=== PATIENT | female | born 1965 | race Caucasian/White ===

== ENCOUNTER 2016-12-04 08:57 | Emergency (ER) | payer MEDICAID ==
[~2016-12-04] VITALS: Ht 152.4 cm; Wt 69.5 kg
[~2016-12-04 08:57] MED LIST: ADVIL
[2016-12-04 09:00] VITALS: Ht 152.4 cm; Wt 69.5 kg
[2016-12-04] MEDS ORDERED: AMO500 PO (09:20)
[2016-12-04] MEDS ORDERED: IBUP-1542 PO (09:20)
[2016-12-04] MEDS ORDERED: HYDR-902 PO (09:20)
[2016-12-04] MEDS ORDERED: IBUPROFEN 800 MG TAB PO ONE (09:30)
[2016-12-04] MEDS ORDERED: DEXAMETHASONE 10 MG/ML 1 ML INJ IM ONE (09:30)
[2016-12-04] MEDS ORDERED: AMOXICILLIN 500 MG CAP PO ONE (09:30)
--- NOTE | 2016-12-04 13:28 | ERD ---
ER Documentation Chief Complaint Date/Time DATE: 12/04/16 TIME: 13:26 Chief Complaint sore throat x 5 days HPI Patient is a 51-year-old female with no medical problems who presents with a sore throat. The symptoms started on Thursday. The patient has no trouble breathing. There are no fevers. The patient tried NyQuil and Advil. There was no allergic reaction and the patient has no new soaps, lotions, or foods. There are no new medicines. Upon review of old medical records the patient one previous visit to the ER in 2011. The patient does not remember the name of the primary doctor. ROS All systems reviewed and are negative except as per history of present illness. Medications Home Meds Active Scripts Amoxicillin* (Amoxicillin*) 500 Mg Cap, 500 MG PO TID for 10 Days, CAP Prov:RAHUL WEBB MD 12/04/16 Hydrocodone/Acetaminophen ([place] 10-325 Tablet) 1 Each Tablet, 1 TAB PO Q6H Y for PAIN, #7 TAB Prov:RAHUL WEBB MD 12/04/16 Ibuprofen* (Motrin*) 600 Mg Tab, 600 MG PO Q6H Y for PAIN AND OR ELEVATED TEMP, #30 TAB Prov:RAHUL WEBB MD 12/04/16 Discontinued Reported Medications [Advil] No Conflict Check 01/06/12 Allergies Allergies: Coded Allergies: No Known Allergy (Unverified , 01/06/12) PMhx/Soc History of Surgery: Yes () Anesthesia Reaction: No Hx Neurological Disorder: No Hx Respiratory Disorders: No Hx Cardiac Disorders: No Hx Psychiatric Problems: No Hx Miscellaneous Medical Probl: No Hx Alcohol Use: No Hx Substance Use: No Hx Tobacco Use: No Smoking Status: Never smoker FmHx Family History: No diabetes Physical Exam Vitals Vital Signs Date Time Temp Pulse Resp B/P Pulse Ox O2 Delivery O2 Flow Rate FiO2 12/04/16 09:00 98.9 120 18 176/82 97 Physical Exam Const: No acute distress Head: Atraumatic Eyes: Normal Conjunctiva ENT: Erythema of the oropharynx, no obvious peritonsillar abscess, no stridor over the neck, no epiglottitis, no angioedema Neck: Full range of motion..~ No meningismus. Resp: Clear to auscultation bilaterally Cardio: Regular rate and rhythm, no murmurs Abd: Soft, non tender, non distended. Normal bowel sounds Skin: No petechiae or rashes Back: No midline or flank tenderness Ext: No cyanosis, or edema Neur: Awake and alert Psych: Normal Mood and Affect Results 24 hrs Current Medications Medications (Trade) Dose Ordered Sig/Hailee Route PRN Reason Start Time Stop Time Status Last Admin Dose Admin Dexamethasone (Decadron) 10 mg ONCE ONCE IM 12/04/16 09:30 12/04/16 09:31 DC 12/04/16 09:22 Amoxicillin (Amoxicillin) 500 mg ONCE ONCE PO 12/04/16 09:30 12/04/16 09:31 DC 12/04/16 09:26 Ibuprofen (Motrin) 800 mg ONCE ONCE PO 12/04/16 09:30 12/04/16 09:31 DC 12/04/16 09:22 Procedures/MDM Patient is a 51-year-old female presents with what appears to be an acute pharyngitis. At this point I doubt peritonsillar abscess, retropharyngeal abscess, or epiglottitis. I believe outpatient management is appropriate. However the patient will need close follow-up with her primary doctor within 24 hours for reevaluation. The patient was given Decadron in the emergency department as well as ibuprofen and will be given a prescription for ibuprofen and [place] and amoxicillin for 10 day course. Departure Diagnosis: Primary Impression: Pharyngitis Pharyngitis/tonsillitis etiology: unspecified etiology Qualified Code: J02.9 - Pharyngitis, unspecified etiology Additional Impression: Sore throat Condition: Fair Patient Instructions: Pharyngitis, Strep (Presumed) Referrals: Your doctor Additional Instructions: Llame al doctor MAANA y tim patricia ALLISON PARA DENTRO DE 1-2 NEELY.Dgale a la secretaria que nosotros le instruimos hacer esta allison.Avise o llame si zamora condicin se empeora antes de la allison. Regresa aqui si peor o no mejor. RAHUL WEBB MD Dec 04, 2016 13:28
== END 2016-12-04 10:02 | disposition home or self-care (01) ==
LOC: E/R 08:57
DX: J02.9 Acute pharyngitis, unspecified (principal); R40.2142 Coma scale, eyes open, spontaneous, at arrival to emergency department; R40.2362 Coma scale, best motor response, obeys commands, at arrival to emergency department; R40.2252 Coma scale, best verbal response, oriented, at arrival to emergency department
CPT/HCPCS: 96372; J1100; Z7502; Z7610

== ENCOUNTER 2017-04-19 13:54 | Emergency (ER) | payer MEDICAID ==
[~2017-04-19] VITALS: Ht 154.9 cm; Wt 71.0 kg
[~2017-04-19 13:54] MED LIST changes: -ADVIL; +AMO500 PO; +HYDR-902 PO; +IBUP-1542 PO
[2017-04-19 13:57] VITALS: Ht 154.9 cm; Wt 71.0 kg
[2017-04-19] MEDS ORDERED: morphine 4 MG/ML VIAL IV STA (15:46)
[2017-04-19] MEDS ORDERED: ONDANSETRON 4 MG INJ IV STA (15:46)
[2017-04-19] MEDS ORDERED: SOD CHLORIDE 0.9% 500 ML IV STA (15:46)
[2017-04-19 16:19] LABS: ADD SCAN DIFF NO
[2017-04-19 16:21] LABS: BASOPHILS % 0.2 % (0.0-2.0); EOSINOPHILS % 0.2 % (0.0-7.0); HEMATOCRIT 44.3 % (37.0-47.0); HEMOGLOBIN 15.3 g/dl (12.0-16.0); LYMPHOCYTES # 1.1 10^3/ul (0.8-2.9); LYMPHOCYTES % 12.7 % (15.0-51.0); MEAN CORPUSCULAR HEMOGLOBIN 30.4 pg (29.0-33.0); MEAN CORPUSCULAR HGB CONC 34.5 g/dl (32.0-37.0); MEAN CORPUSCULAR VOLUME 88.1 fl (82.0-101.0); MONOCYTE # 0.4 10^3/ul (0.3-0.9); MONOCYTES % 4.5 % (0.0-11.0); NEUTROPHIL # 7.4 10^3/ul (1.6-7.5); PLATELET COUNT 218 10^3/UL (140-415); RED BLOOD COUNT 5.03 10^6/ul (4.20-5.40); RED CELL DISTRIBUTION WIDTH 12.5 % (11.5-14.5)
--- NOTE | 2017-04-19 16:22 | RADRPT ---
PROCEDURE: Right upper quadrant abdominal ultrasound. CLINICAL INDICATION: Abdominal pain TECHNIQUE: Rowell scale and color doppler ultrasound images of the right upper quadrant. COMPARISON: None FINDINGS: Pancreas: Visualized portions appear of normal echogenicity, no focal lesions. Liver: Morphology: The right lobe of the liver is elongated measuring up to 17.1 cm which may reflect Cony del's lobe configuration. Echogenicity: Increased echogenicity of the liver parenchyma suggestive of hepatic steatosis. Focal lesions: None. Main portal vein: Patent with hepatopetal flow. Biliary System: Normal appearing gallbladder wall. No gallstones seen. No intrahepatic biliary dilatation. Common bile duct measures 2.4 mm in maximal dimension. Kidneys: Right 11.4 cm in length. Right renal cortical thickness is preserved. Normal echogenicity. No hydronephrosis. No renal calculi. No focal lesions. No free fluid identified. IMPRESSION: Normal gallbladder without gallstones. Increased echogenicity of the liver parenchyma suggestive of hepatic steatosis. RPTAT: AADD .Abelardo Godoy MD, MD Date Time Electronically viewed and signed by .Abelardo Godoy MD, on 04/19/2017 16:21 .B/
--- NOTE | 2017-04-19 16:23 | RADRPT ---
PROCEDURE: CT abdomen and pelvis without contrast. CLINICAL INDICATION: Abdominal Pain TECHNIQUE: CT scan of the abdomen and pelvis without contrast was performed and is reconstructed a t 2.5 mm contiguous axial intervals from the dome of the diaphragm to the inferior pubic rami.. The patient was scanned without intravenous contrast. Sagittal and coronal reformatted images were obt ained from the axial source images. The calculated radiation dose measures 745 mGy centimeters. The CTDI measures 13 mGy. COMPARISON: The FINDINGS: The lung bases are clear of any infiltrate or nodule. No effusion is seen. Liver is enlarged measuring 20 cm. There is fatty infiltration with focal sparing in the left lobe. No mass or ductal dilatation is present. No gallstones are visualized. No splenic, adrenal or pancreatic abnormalities present. Kidneys are of normal size and contour. No hydronephrosis or masses seen. There are multiple bila teral nonobstructing renal calculi including an 8 mm stone in the midpole of the left kidney and a 4 mm stone in the lower pole of the right kidney. Smaller stones are present in both kidneys.. Uret ers are of normal course and caliber with no stone. No bladder mass or stone is present. Uterus and ovaries appear normal. There is no aneurysm. No adenopathy is present. No bowel mass or obstruction is present. The appendix is normal. No phlegmon, ascites or pneumop eritoneum is visualized. There is L5-S1 degenerative disk disease. IMPRESSION: No evidence of obstructive uropathy, diverticulitis or appendicitis. Bilateral renal calculi. Enlarged fatty liver. L5-S1 degenerative disk disease. .Christos Mcnamara MD, MD Date Time Electronically viewed and signed by .Christos Mcnamara MD, MD on 04/19/2017 16:22 .A/
[2017-04-19 16:30] LABS: ADD UMIC YES; URINE BILIRUBIN (Dip) NEGATIVE (NEGATIVE); URINE BLOOD (Dip) 3+ (NEGATIVE); URINE COLOR LT. YELLOW (YELLOW); URINE GLUCOSE (Dip) >=1000 % (NEGATIVE); URINE KETONES (Dip) NEGATIVE (NEGATIVE); URINE LEUKOCYTE ESTERASE (Dip) NEGATIVE (NEGATIVE); URINE NITRITE (Dip) POSITIVE (NEGATIVE); URINE TOTAL PROTEIN (Dip) NEGATIVE (NEGATIVE); URINE UROBILINOGEN (Dip) 0.2 E.U./dL (0.1-1.0)
[2017-04-19 16:33] LABS: ALBUMIN 4.3 g/dl (3.3-4.9); BILIRUBIN,INDIRECT 0.6 mg/dl (0-1.1); BILIRUBIN,TOTAL 0.6 mg/dl (0.2-1.3); CALCIUM 9.7 mg/dl (8.4-10.2); CREATININE 0.7 mg/dl (0.44-1.00); POTASSIUM 3.9 mmol/L (3.5-5.1); TOTAL PROTEIN 8.6 g/dl (6.1-8.1)
[2017-04-19 16:45] LABS: BACTERIA,URINE MODERATE; URINE RBCS >200 /HPF (0)
[2017-04-19] MEDS ORDERED: ASPI81TA3 PO (17:00)
[2017-04-19] MEDS ORDERED: HYDR-902 PO (17:13)
[2017-04-19] MEDS ORDERED: CEPH-443 PO (17:13)
[2017-04-19] MEDS ORDERED: ONDA4TAB14 PO (17:13)
[2017-04-19] MEDS ORDERED: METF500T4 PO (17:13)
[2017-04-19] MEDS ORDERED: IBUP800T25 PO (17:13)
--- NOTE | 2017-04-19 17:20 | ERD ---
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 She states right flank pain radiating to the right abdomen for several days. She also states lumbar back pain radiating to the entirety of her right leg. No bowel or bladder incontinence. She does describe some mild dysuria slight urgency and frequency. She denies any fevers or chills. Prior history of kidney stones. No abdominal surgery history. ROS All systems reviewed and are negative except as per history of present illness. Medications Home Meds Active Scripts Cephalexin* (Keflex*) 500 Mg Capsule, 500 MG PO QID for 7 Days, CAP Prov:CLARISSA MATHEWS MD 04/19/17 Ondansetron (Ondansetron Odt) 4 Mg Tab.rapdis, 4 MG PO Q6H Y for NAUSEA AND/OR VOMITING, #10 TAB Prov:CLARISSA MATHEWS MD 04/19/17 Ibuprofen* (Motrin*) 800 Mg Tab, 800 MG PO Q6H Y for PAIN AND OR ELEVATED TEMP, #30 TAB Prov:CLARISSA MATHEWS MD 04/19/17 Hydrocodone/Acetaminophen ([place] 10-325 Tablet) 1 Each Tablet, 1 TAB PO Q6H Y for PAIN, #7 TAB Prov:CLARISSA MATHEWS MD 04/19/17 Metformin* (Glucophage*) 500 Mg Tab, 500 MG PO BID for 30 Days, TAB Prov:CLARISSA MATHEWS MD 04/19/17 Amoxicillin* (Amoxicillin*) 500 Mg Cap, 500 MG PO TID for 10 Days, CAP Prov:RAHUL WEBB MD 12/04/16 Hydrocodone/Acetaminophen ([place] 10-325 Tablet) 1 Each Tablet, 1 TAB PO Q6H Y for PAIN, #7 TAB Prov:RAHUL WEBB MD 12/04/16 Ibuprofen* (Motrin*) 600 Mg Tab, 600 MG PO Q6H Y for PAIN AND OR ELEVATED TEMP, #30 TAB Prov:RAHUL WEBB MD 12/04/16 Reported Medications Aspirin* (Aspirin* Chew) 81 Mg Tab.chew, 81 MG PO DAILY, TAB.CHEW 04/19/17 Allergies Allergies: Coded Allergies: No Known Allergy (Unverified , 01/06/12) PMhx/Soc History of Surgery: Yes () Anesthesia Reaction: No Hx Neurological Disorder: No Hx Respiratory Disorders: No Hx Cardiac Disorders: No Hx Psychiatric Problems: No Hx Miscellaneous Medical Probl: Yes (HTN, Kidney Stones.) Hx Alcohol Use: No Hx Substance Use: No Hx Tobacco Use: No Smoking Status: Never smoker FmHx Family History: No diabetes Physical Exam Vitals Vital Signs Date Time Temp Pulse Resp B/P Pulse Ox O2 Delivery O2 Flow Rate FiO2 04/19/17 16:36 97.9 106 18 160/91 94 Room Air 04/19/17 13:57 97.6 126 20 186/95 94 Physical Exam General: Well developed, well nourished, no acute distress Head: Normocephalic, atraumatic. Eyes: Pupils equally reactive, EOM intact ENT: Moist mucous membranes Neck: Supple, no lymphadenopathy Respiratory: Lungs clear bilaterally, no distress Cardiovascular: RRR, no murmurs, rubs, or gallops Abdominal: Soft, mild tenderness to the epigastrium and right upper quadrant, no CVA tenderness, no pulsatile mass : Deferred MSK: No edema, no unilateral swelling, 5/5 strength positive straight leg raise of the right lower extremity Neurologic: Alert and oriented, moving all extremities, normal speech, no focal weakness, no cerebellar signs Skin: No rash Psych: Normal mood Result Diagram: 04/19/17 1600 04/19/17 1600 Results 24 hrs Laboratory Tests Test 04/19/17 16:00 White Blood Count 9.010^3/ul Red Blood Count 5.0310^6/ul Hemoglobin 15.3g/dl Hematocrit 44.3% Mean Corpuscular Volume 88.1fl Mean Corpuscular Hemoglobin 30.4pg Mean Corpuscular Hemoglobin Concent 34.5g/dl Red Cell Distribution Width 12.5% Platelet Count 46589^3/UL Mean Platelet Volume 11.0fl Neutrophils % 82.0% Lymphocytes % 12.7% Monocytes % 4.5% Eosinophils % 0.2% Basophils % 0.2% Nucleated Red Blood Cells % 0.0/100WBC Neutrophils # 7.410^3/ul Lymphocytes # 1.110^3/ul Monocytes # 0.410^3/ul Eosinophils # 0.010^3/ul Basophils # 0.010^3/ul Nucleated Red Blood Cells # 0.010^3/ul Urine Color LT. YELLOW Urine Clarity CLEAR Urine pH 5.5 Urine Specific Lucas <=1.005 Urine Ketones NEGATIVE Urine Nitrite POSITIVE Urine Bilirubin NEGATIVE Urine Urobilinogen 0.2 E.U./dL Urine Leukocyte Esterase NEGATIVE Urine Microscopic RBC >200/HPF Urine Microscopic WBC 2-5/HPF Urine Epithelial Cells MODERATE Urine Bacteria MODERATE Urine Hemoglobin 3+ Urine Glucose >=1000% Urine Total Protein NEGATIVE Sodium Level 139mmol/L Potassium Level 3.9mmol/L Chloride Level 101mmol/L Carbon Dioxide Level 25mmol/L Anion Gap 17 Blood Urea Nitrogen 13mg/dl Creatinine 0.70mg/dl Glucose Level 490mg/dl Calcium Level 9.7mg/dl Total Bilirubin 0.6mg/dl Direct Bilirubin 0.00mg/dl Indirect Bilirubin 0.6mg/dl Aspartate Amino Transf (AST/SGOT) 19IU/L Alanine Aminotransferase (ALT/SGPT) 36IU/L Alkaline Phosphatase 162IU/L Total Protein 8.6g/dl Albumin 4.3g/dl Globulin 4.30g/dl Albumin/Globulin Ratio 1.00 Lipase 63U/L Current Medications Medications (Trade) Dose Ordered Sig/Hailee Route PRN Reason Start Time Stop Time Status Last Admin Dose Admin Sodium Chloride (NS) 500 ml @ 500 mls/hr Q1H STAT IV 04/19/17 15:46 04/19/17 16:45 DC 04/19/17 16:34 Morphine Sulfate (morphine) 4 mg ONCE STAT IV 04/19/17 15:46 04/19/17 15:47 DC 04/19/17 16:34 Ondansetron HCl (Zofran Inj) 4 mg ONCE STAT IV 04/19/17 15:46 04/19/17 15:47 DC 04/19/17 16:33 Procedures/MDM EKG, MONITORS, & DIAGNOSTIC IMAGING: Gallbladder ultrasound: IMPRESSION: Normal gallbladder without gallstones. Increased echogenicity of the liver parenchyma suggestive of hepatic steatosis. RPTAT: AADD Ct a/p: IMPRESSION: No evidence of obstructive uropathy, diverticulitis or appendicitis. Bilateral renal calculi. Enlarged fatty liver. L5-S1 degenerative disk disease. LAB INTERPRETATION: Hyperglycemia noted without evidence of diabetic ketoacidosis, urinalysis consistent with UTI, no ketonuria MEDICAL DECISION MAKING: The patient presents with multiple complaints including UTI type symptoms right flank pain, abdominal pain and right lower extremity pain. The patient's symptomatology seems to be most consistent with likely sciatica. Unclear significance of flank pain, consider nephrolithiasis versus cholelithiasis, low clinical concern for acute cholecystitis. The patient has no evidence of acute pyelonephritis. She may have an uncomplicated urinary tract infection. Given the multitude of her complaints laboratory testing, CT imaging and ultrasound have been ordered. ER COURSE: The patient's laboratory testing shows evidence of likely new diagnosis of type 2 diabetes. The patient has hyperglycemia without evidence of diabetic ketoacidosis. No indication for rapidly lowering this level. The patient has been given IV fluids. She will be started on metformin. Diabetes education given to the patient. Outpatient follow-up with primary care physician is strongly recommended. The patient CT abdomen pelvis is unrevealing. The patient's flank and back pain are most consistent with likely radiculopathy. Again no concern for bowel nephritis. The patient will be given Keflex for UTI. I kept the patient and/or family informed of laboratory and diagnostic imaging results throughout the emergency room course. DISPOSITION PLAN: We discussed follow up with the patient's primary care doctor within 24 to 48 hours as needed. We also discussed return to the emergency room for worsening symptoms or worsening condition. Outpatient referral: Primary care clinics strongly recommended Discharge Medications: [place], Zofran, Motrin, Keflex, metformin We discussed the use of narcotics including avoidance of operating heavy machinery and driving as well as its addictive properties. Departure Diagnosis: Primary Impression: Flank pain Additional Impressions: Sciatica Laterality: right Qualified Code: M54.31 - Sciatica of right side Diabetes mellitus Diabetes mellitus type: type 2 Diabetes mellitus complication status: without complication Diabetes mellitus long-term insulin use: unspecified long-term insulin use status Qualified Code: E11.9 - Type 2 diabetes mellitus without complication, unspecified terminal make up operator insulin use status Condition: Stable Patient Instructions: Understanding Urinary Tract Infections (UTIs), DIABETES, General Info, Flank Pain, Uncertain Cause, Back Pain W/ Sciatica, Hyperglycemia , New Onset (Diabetes Suspected) Referrals: [facility] Usted se bhagat hecho un examen mdico de control que le indica que no est en patricia condicin que requiera tratamiento urgente en el Departamento de Emergencia. Un estudio ms profundo y el tratamiento de zamora condicin pueden esperar sin ningn riesgo hasta que usted sea atendida/o en el consultorio de zamora mdico o patricia cl earlene. Es responsabilidad suya arreglar patricia allison para el seguimiento del clement. MANEJO DE CONDICIONES NO URGENTES EN EL FUTURO 1) Si usted tiene un mdico de atencin primaria: Usted debera llamar a zamora mdico de atencin primaria antes de venir al departamento de emergencia. Despus de las horas de consultorio, zamora doctor o zamora asociado/a est disponible por telfono. El mdico o enfermero de hussein en el servicio telefnico puede asesorarle por jerardo medio para atender el problema, o clement contrario se puede programar patricia allison. 2) Si usted no tiene un mdico de atencin primaria: Llame al mdico o clnica de referencia que aparece abajo demetrio las horas de consultorio para hacer patricia allison para que le vean. CLINICAS: [facility] [phone] [address] [facility] [phone] [address] [facility] [phone] [address] [facility]. [facility] [phone] [facility] [phone] [address] [facility]. [phone] [address] [facility] () Usted se bhagat hecho un examen mdico de control que le indica que no est en patricia condicin que requiera tratamiento urgente en el Departamento de Emergencia. Un estudio ms profundo y el tratamiento de zamora condicin pueden esperar sin ningn riesgo hasta que usted sea atendida/o en el consultorio de zamora mdico o patricia cl earlene. Es responsabilidad suya arreglar patricia allison para el seguimiento del clement. MANEJO DE CONDICIONES NO URGENTES EN EL FUTURO 1) Si usted tiene un mdico de atencin primaria: Usted debera llamar a zamora mdico de atencin primaria antes de venir al departamento de emergencia. Despus de las horas de consultorio, zamora doctor o zamora asociado/a est disponible por telfono. El mdico o enfermero de hussein en el servicio telefnico puede asesorarle por jerardo medio para atender el problema, o clement contrario se puede programar patricia allison. 2) Si usted no tiene un mdico de atencin primaria: Llame al mdico o condado institucions de referencia que aparece abajo demetrio las horas de consultorio para hacer patricia allison para que le vean. SI USTED NO PUEDE PAGAR PARA ABAD UN MEDICO puede ir a: [facility] [address] [place] [address] [facility] [address] [place] [address] [facility] [address] [place] [address] [facility] [address] [place], [place] [id number] Additional Instructions: Llame al doctor nombrado abajo (Referral Sources) MAANA y tim patricia ALLISON PARA DENTRO DE PATRICIA SEMANA. Dgale a la secretaria que nosotros le instruimos hacer esta allison.Avise o llame si zamora condicin se empeora antes de la allison. CLARISSA MATHEWS MD April 19, 2017 17:20
[2017-04-19 17:57] VITALS: BP 156/86; PULSE 87; RESP 16; TEMP 98
== END 2017-04-19 17:58 | disposition home or self-care (01) ==
LOC: E/R 13:54
DX: R10.11 Right upper quadrant pain (principal); M54.31 Sciatica, right side; E11.9 Type 2 diabetes mellitus without complications; I10 Essential (primary) hypertension; R11.2 Nausea with vomiting, unspecified; R10.13 Epigastric pain; Z79.82 Long term (current) use of aspirin; Z79.84 Long term (current) use of oral hypoglycemic drugs
CPT/HCPCS: 74176; 76705; 80053; 81001; 83690; 85025; J2270; J2405; J7040; 36415; 81003; 96361; 96374; 96375

== ENCOUNTER 2019-09-23 08:21 | Inpatient (IN) | payer MEDICAID ==
[~2019-09-23] VITALS: Ht 160 cm; Wt 80.0 kg
[2019-09-23] VITALS (20 sets, daily range): BP systolic 80–138; BP diastolic 45–65; PULSE 102–126; RESP 10–34; Ht 160 cm; Wt 80.0 kg
[~2019-09-23 08:21] MED LIST changes: -AMO500 PO; +AMOX500C2 PO; +ASPI-817 ORAL; +ASPI-903 PO; +CEPH-443 PO; +CIPR500T4 PO; +CYAN100085 PO; +GEMF600T8 ORAL; +GLIP5TAB13 ORAL; +HYDR-3980 PO; -HYDR-902 PO; +HYDR25TA6 PO; +IBUP800T48 PO; +METF-849 PO; +METF100010 ORAL; +OMEG1CAP88 ORAL; +ONDA4TAB14 PO
[2019-09-23] MEDS ORDERED: PIPER-TAZO 3.375 GM IV (PMX) 100 ML IVPB STA (08:35)
[2019-09-23] MEDS ORDERED: SODIUM CHLORIDE 0.9% 1L BAG IV* STA (08:35)
[2019-09-23] MEDS ORDERED: ACETAMINOPHEN 500 MG TAB PO STA (08:47)
[2019-09-23] MEDS ORDERED: ONDANSETRON 4 MG INJ IV PRN ×2 (09:30→12:30)
[2019-09-23] MEDS ORDERED: ACETAMINOPHEN 325 MG TAB PO PRN ×2 (09:30→12:30)
[2019-09-23] MEDS ORDERED: SOD CHLORIDE 0.9% 1,000 ML IV ONE (11:30)
[2019-09-23] MEDS ORDERED: NACL 0.9% 3 ML SYG IV SCH (12:30)
[2019-09-23] MEDS ORDERED: HYDROCODONE/APAP (5/325) TAB PO PRN (12:30)
[2019-09-23] MEDS ORDERED: morphine 2 MG INJ IV PRN (12:30)
[2019-09-23] MEDS ORDERED: DOCUSATE SODIUM 100 MG CAP PO PRN (12:30)
[2019-09-23] MEDS: SOD CHLORIDE 0.9% 1,000 ML IV SCH ×2 (13:09→22:30)
[2019-09-23] MEDS: CEFTRIAXONE 1 GM/50 ML (PMX) 50 ML IVPB SCH (13:09)
[2019-09-23] MEDS: INSULIN ASPART [NOVOLOG] 3 ML PEN SC SCH ×3 (14:22→22:39)
[2019-09-23] MEDS: INSULIN GLARGINE [LANTus] (100 UNITS/ML) SYG SC SCH (14:22)
[2019-09-23] MEDS ORDERED: PROPOFOL 20 ML ONE (18:42)
[2019-09-23] MEDS ORDERED: DEXAMETHASONE 4 MG/ML 5 ML INJ ONE (18:42)
[2019-09-23] MEDS ORDERED: ONDANSETRON 4 MG INJ ONE (18:42)
[2019-09-23] MEDS ORDERED: PHENYLephrine (100 MCG/ML) 5ML SYG ONE (18:42)
[2019-09-23] MEDS ORDERED: MIDAZOLAM 1 MG/ML 2 ML INJ ONE (18:42)
[2019-09-23] MEDS ORDERED: SUGAMMADEX SODIUM 200 MG/2 ML VIAL IV ONE (18:42)
[2019-09-23] MEDS ORDERED: ROCURONIUM 50 MG INJ ONE (18:42)
[2019-09-23] MEDS ORDERED: METOCLOPRAMIDE 10 MG INJ ONE (18:42)
[2019-09-23] MEDS ORDERED: KETOROLAC 30 MG INJ ONE (18:42)
[2019-09-23] MEDS ORDERED: CEFAZOLIN 1 GM INJ ONE (18:42)
[2019-09-23] MEDS ORDERED: EPHEDrine 25 MG/5 ML SYG ONE (18:42)
[2019-09-23] MEDS ORDERED: FENTAnyl 50 MCG/ML VIAL ONE (18:43)
[2019-09-23] MEDS ORDERED: LIDOCAINE 2% 20 ML UROJET SYRINGE ONE (19:17)
[2019-09-23] MEDS ORDERED: IOHEXOL 300MG/ML 30 ML BTL ONE (19:17)
[2019-09-23] MEDS ORDERED: HETASTARCH 6% NACL 500 ML BAG ONE (19:50)
[2019-09-23] MEDS ORDERED: ZOLPIDEM 5 MG TAB PO PRN (21:00)
[2019-09-24] MEDS: ACCU-CHEK XX SCH (02:00)
[2019-09-24] MEDS: SOD CHLORIDE 0.9% 1,000 ML IV SCH ×2 (02:42→14:21)
[2019-09-24 04:00] VITALS: BP 94/52; PULSE 92; RESP 20
[2019-09-24 07:33] VITALS: BP 113/70; PULSE 90; RESP 16
[2019-09-24] MEDS: INSULIN ASPART [NOVOLOG] 3 ML PEN SC SCH ×4 (07:53→21:10)
[2019-09-24] MEDS: INSULIN GLARGINE [LANTus] (100 UNITS/ML) SYG SC SCH (08:18)
[2019-09-24 11:13] VITALS: BP 112/63; PULSE 92; RESP 16
[2019-09-24] MEDS: CEFTRIAXONE 1 GM/50 ML (PMX) 50 ML IVPB SCH (14:21)
[2019-09-24 15:25] VITALS: BP 120/66; PULSE 98; RESP 16
[2019-09-24] MEDS ORDERED: MAGNESIUM SULFATE 4 GM/100 ML 100 ML IVPB ONE (17:30)
[2019-09-24 20:00] VITALS: BP 118/61; PULSE 91; RESP 18
[2019-09-25] VITALS: BP 119/76; PULSE 91; RESP 18
[2019-09-25] MEDS: ACCU-CHEK XX SCH (01:42)
[2019-09-25 03:25] VITALS: BP 148/84; PULSE 94; RESP 18
[2019-09-25] MEDS: SOD CHLORIDE 0.9% 1,000 ML IV SCH ×2 (04:30→14:30)
[2019-09-25] MEDS: INSULIN ASPART [NOVOLOG] 3 ML PEN SC SCH ×2 (07:48→11:31)
[2019-09-25 07:49] VITALS: BP 164/84; PULSE 104; RESP 18
[2019-09-25] MEDS: INSULIN GLARGINE [LANTus] (100 UNITS/ML) SYG SC SCH (08:40)
[2019-09-25 11:46] VITALS: BP 160/90; PULSE 110; RESP 18
[2019-09-25] MEDS: CEFTRIAXONE 1 GM/50 ML (PMX) 50 ML IVPB SCH (14:03)
[2019-09-25 15:53] VITALS: BP 129/71; PULSE 102; RESP 18
== END 2019-09-25 16:45 | disposition home or self-care (01) | DRG 854 ==
LOC: E/R 08:21 → TEL 09:29
PROVIDERS: ADMIT Internal Medicine; ATTEND Internal Medicine
PROC: 0T778DZ Dilation of Left Ureter with Intraluminal Device, Via Natural or Artificial Opening Endoscopic (ICD-10-PCS; principal; 2019-09-23 19:30)
DX: A41.9 Sepsis, unspecified organism (principal); N39.0 Urinary tract infection, site not specified; N13.6 Pyonephrosis; N20.1 Calculus of ureter; E11.9 Type 2 diabetes mellitus without complications; I10 Essential (primary) hypertension; E83.42 Hypomagnesemia; E66.9 Obesity, unspecified; Z68.31 Body mass index [BMI] 31.0-31.9, adult; B96.20 Unspecified Escherichia coli [E. coli] as the cause of diseases classified elsewhere
CPT/HCPCS: 71045; 74018; 74176; 74420; 80048; 80053; 81001; 82962; 83036; 83605; 83735; 84100; 84484; 85025; 85610; 85730; 87086; 93005; 96365; C2617; J0690; J0696; J1100; J1815; J1885; J2250; J2270; J2370; J2405; J2543; J2765; J3010; J7030; Q9967